=== PATIENT | female | born 2000 | race Caucasian/White ===

== ENCOUNTER 2019-10-21 18:32 | Emergency (ER) | payer OTHER ==
[~2019-10-21] VITALS: Ht 160 cm; Wt 72.6 kg
[2019-10-21 18:36] VITALS: BP 136/70
--- NOTE | 2019-10-21 18:51 | NUR ---
PT AMB TO BED 4.
--- NOTE | 2019-10-21 18:56 | NUR ---
C/O R BIG TOE PAIN & BLEEDING S/P SLIP X TODAY.PT AWAKE, AOX4 , AMBULATORY WITH STEADY GAIT, NO ACTIVE BLEEDING ON RT BIG TOE. NO LIMITATION ROM . MED HX: DENIES
--- NOTE | 2019-10-21 19:08 | NUR ---
report given to maryann herrera ,pt vs stable. comfortable in bed ,side rails up x1 and lock.
--- NOTE | 2019-10-21 19:11 | NUR ---
RECEIVED REPORT FROM MELANIE SMITH
--- NOTE | 2019-10-21 19:13 | NUR ---
Dr. Gomez examining patient.
[2019-10-21 19:17] VITALS: BP 136/70
--- NOTE | 2019-10-21 19:17 | NUR ---
Patient discharged with v/s stable. Written and verbal after care instructions about crush injury for fingers and toes given and explained. Patient alert, oriented and verbalized understanding of instructions. Ambulatory with steady gait. All questions addressed prior to discharge. ID band removed. Patient advised to follow up with PMD. Rx of Naprosyn given. Patient educated on indication of medication including possible reaction and side effects. Opportunity to ask questions provided and answered.
== END 2019-10-21 19:17 | disposition home or self-care (01) ==
LOC: MED 18:32
DX: S90.211A Contusion of right great toe with damage to nail, initial encounter (principal); X58.XXXA Exposure to other specified factors, initial encounter; Y93.89 Activity, other specified; Y92.89 Other specified places as the place of occurrence of the external cause; Y99.8 Other external cause status
CPT/HCPCS: 99282